=== PATIENT | male | born 1985 | race Caucasian/White ===

== ENCOUNTER 2017-06-27 21:43 | Emergency (ER) | payer SELFPAY ==
[~2017-06-27] VITALS: Ht 165.1 cm; Wt 71.7 kg
[2017-06-27 23:01] LABS: BILIRUBIN NEGATIVE (NEGATIVE); BLOOD NEGATIVE (NEGATIVE); CLARITY SL CLOUDY (CLEAR); COLOR YELLOW (YELLOW); GLUCOSE NEGATIVE (NEGATIVE); KETONE NEGATIVE (NEGATIVE); LEUKO ESTERASE NEGATIVE (NEGATIVE); NITRITE NEGATIVE (NEGATIVE); PH 6.5 (5.0-9.0); SPECIFIC GRAVITY 1.025 (1.005-1.030)
[2017-06-27 23:14] LABS: BACTERIA 2+; EPITHELIAL CELLS 0-2
== END 2017-06-27 22:40 | disposition home or self-care (01) ==
LOC: ED 21:43
PROVIDERS: Nurse Practitioner Family
DX: Z11.3 Encounter for screening for infections with a predominantly sexual mode of transmission (principal); F17.200 Nicotine dependence, unspecified, uncomplicated

== ENCOUNTER 2017-11-21 16:47 | Emergency (ER) | payer BC, OTHER ==
[~2017-11-21] VITALS: Ht 165.1 cm; Wt 68.0 kg
--- NOTE | ~2017-11-21 | EKG ---
[facility], [place] ELECTROCARDIOGRAM REPORT NAME: LINDA LOGAN UNIT #: [id number] ROOM: DOCTOR: EPIPHANY DRAFT REPORT BIRTHDATE: [birth year] [facility] Test Date: 2017-11-21 Test Time: 18:44:18 Pat Name: LINDA LOGAN Department: ER Room: Gender: [employer] Equipment [employer]: Sotero Blackwell : 1985 Requested By: NANDO TYLER PA-C Order Number: [id number] Reading MD: Jatinder Sheets MD Measurements Intervals [place] Rate: 61 P: 60 LA: 166 QRS: 41 QRSD: 108 T: 31 QT: 395 QTc: 398 Interpretive Statements Sinus rhythm RSR' in V1 or V2, right VCD or RVH Probable left ventricular hypertrophy ST elev, probable normal early repol pattern Electronically Signed On 11-23-2017 14:46:28 PDT by Jatinder Sheets MD CM:EKGRPT:ELECTROCARDIOGRAM REPORT [id number] NANDO TYLER PA-C EPIPHANY DRAFT REPORT NANDO TYLER PA-C
[~2017-11-21 16:47] MED LIST: CHLORZOXAZONE500 M2 PO; PREDNISONE10 MG PO
== END 2017-11-21 18:59 | disposition home or self-care (01) ==
LOC: ED 16:47
DX: R07.89 Other chest pain (principal); F17.200 Nicotine dependence, unspecified, uncomplicated

== ENCOUNTER 2018-03-24 05:13 | Emergency (ER) | payer BC, OTHER ==
[~2018-03-24] VITALS: Ht 165.1 cm; Wt 76.2 kg
[2018-03-24 06:51] LABS: BASO # 0.1 10*3/uL (0.0-0.1); BASO % 0.2 % (0.0-1.0); HEMATOCRIT 48.5 % (42.0-52.0); HEMOGLOBIN 16.7 g/dl (14.0-18.0); LYMPH # 1.1 10*3/uL (1.3-4.4); LYMPH % 5.6 % (27.0-41.0); MEAN CELL VOLUME 89.6 fl (80.0-94.0); MEAN CORPUSCULAR HGB 30.9 pg (27.0-31.0); MEAN CORPUSCULAR HGB CONC 34.4 g/dl (33.0-37.0); MEAN PLATELET VOLUME 10.4 fl (9.6-12.3); NEUT # 17.7 10*3/uL (2.3-7.9); NEUT % 88.7 % (47.0-73.0); PLATELET COUNT AUTOMATED 228 10*3/uL (130-400); RED BLOOD COUNT 5.41 10*6/uL (4.50-5.90); RED CELL DISTRI WIDTH 13.2 % (0-14.5)
[2018-03-24 07:07] LABS: ALBUMIN 3.8 gm/dl (3.1-4.5); ALKALINE PHOSPHATASE 83 U/L (45-117); BUN 9 mg/dl (7-24); CHLORIDE 108 mmol/L (98-107); CREATININE 0.77 mg/dL (0.70-1.30); POTASSIUM 3.5 mmol/L (3.5-5.1); SGOT/AST 12 IU/L (3-35); SGPT/ALT 38 U/L (12-78); SODIUM 139 mmol/L (136-145); TOTAL PROTEIN 7.1 gm/dL (6.4-8.2)
== END 2018-03-24 08:10 | disposition home or self-care (01) ==
LOC: ED 05:13
PROVIDERS: Student in an Organized Health Care Education/Training Program
DX: B27.90 Infectious mononucleosis, unspecified without complication (principal); J03.90 Acute tonsillitis, unspecified; R00.0 Tachycardia, unspecified; F17.200 Nicotine dependence, unspecified, uncomplicated

== ENCOUNTER 2019-05-15 15:15 | Emergency (ER) | payer BC, OTHER ==
[~2019-05-15] VITALS: Ht 165.1 cm; Wt 76.2 kg
== END 2019-05-15 15:24 | disposition home or self-care (01) ==
LOC: ED 15:15
DX: M54.5 Low back pain (principal); M79.605 Pain in left leg; F17.200 Nicotine dependence, unspecified, uncomplicated

== ENCOUNTER 2019-07-25 08:48 | Emergency (ER) | payer BC, OTHER ==
[~2019-07-25] VITALS: Wt 77.1 kg
[2019-07-25 09:51] LABS: BILIRUBIN NEGATIVE (NEGATIVE); BLOOD NEGATIVE (NEGATIVE); CLARITY SL CLOUDY (CLEAR); COLOR YELLOW (YELLOW); GLUCOSE NEGATIVE (NEGATIVE); KETONE NEGATIVE (NEGATIVE); LEUKO ESTERASE TRACE (NEGATIVE); NITRITE NEGATIVE (NEGATIVE); UROBILINOGEN 0.2 E.U./dl (0.2-1.0)
[2019-07-25 09:52] LABS: BACTERIA 1+; EPITHELIAL CELLS 0-2; WBC 16-20 wbc/hpf (0-5)
[2019-07-25 09:54] LABS: BASO # 0.1 10*3/uL (0.0-0.1); BASO % 0.4 % (0.0-1.0); EOS # 0.1 10*3/uL (0.0-0.4); EOS % 0.7 % (1.0-4.0); HEMATOCRIT 51.3 % (42.0-52.0); LYMPH # 2.2 10*3/uL (1.3-4.4); LYMPH % 15.1 % (27.0-41.0); MEAN CELL VOLUME 92.1 fl (80.0-94.0); MEAN CORPUSCULAR HGB 30.9 pg (27.0-31.0); MEAN CORPUSCULAR HGB CONC 33.5 g/dl (33.0-37.0); MEAN PLATELET VOLUME 10.3 fl (9.6-12.3); MONO # 0.8 10*3/uL (0.1-1.0); MONO % 5.5 % (3.0-9.0); NEUT # 11.5 10*3/uL (2.3-7.9); PLATELET COUNT AUTOMATED 252 10*3/uL (130-400); RED BLOOD COUNT 5.57 10*6/uL (4.50-5.90); RED CELL DISTRI WIDTH 13.1 % (0-14.5); WHITE BLOOD COUNT 14.8 10*3/uL (4.8-10.8)
[2019-07-25 10:10] LABS: BUN 11 mg/dl (7-24); CHLORIDE 109 mmol/L (98-107); LIPASE 244 U/L (73-393); POTASSIUM 4.2 mmol/L (3.5-5.1); SGOT/AST 21 IU/L (3-35); SGPT/ALT 46 U/L (12-78); SODIUM 140 mmol/L (136-145); TOTAL PROTEIN 7.6 gm/dL (6.4-8.2)
[2019-07-25 10:17] LABS: ALKALINE PHOSPHATASE 88 U/L (45-117)
== END 2019-07-25 11:13 | disposition home or self-care (01) ==
LOC: ED 08:48
PROVIDERS: Nurse Practitioner Family
DX: S39.011A Strain of muscle, fascia and tendon of abdomen, initial encounter (principal); F17.200 Nicotine dependence, unspecified, uncomplicated; X58.XXXA Exposure to other specified factors, initial encounter; Y93.89 Activity, other specified; Y92.89 Other specified places as the place of occurrence of the external cause; Y99.8 Other external cause status

== ENCOUNTER 2019-10-11 18:36 | Emergency (ER) | payer OTHER ==
[~2019-10-11] VITALS: Wt 80.7 kg
[2019-10-11] MEDS ORDERED: PREDNISONE10 MG PO (18:59)
== END 2019-10-11 19:10 | disposition home or self-care (01) ==
LOC: ED 18:36
DX: L23.9 Allergic contact dermatitis, unspecified cause (principal)

== ENCOUNTER 2021-12-20 15:49 | Emergency (ER) | payer SELFPAY ==
[~2021-12-20] VITALS: Ht 165.1 cm; Wt 79.4 kg
[2021-12-20] MEDS ORDERED: PREDNISONE20 M1 PO (18:24)
[2021-12-20] MEDS ORDERED: METHOCARBAMOL500 M1 PO (18:24)
== END 2021-12-20 18:27 | disposition home or self-care (01) ==
LOC: ED 15:49
DX: M54.42 Lumbago with sciatica, left side (principal)